=== PATIENT | male | born 1935 | race Caucasian/White ===

== ENCOUNTER 2023-01-02 10:24 | Emergency (ER) | payer MEDICARE, OTHER ==
[2023-01-02 11:09] LABS: APPEARANCE,URINE SLIGHTLY CLOUDY (CLEAR); BILIRUBIN,URINE NEGATIVE (NEGATIVE); COLOR,URINE YELLOW (YELLOW); GLUCOSE,URINE NEGATIVE (NEGATIVE); KETONES,URINE 15 mg/dL (NEGATIVE); LEUKOCYTE ESTERASE,URINE NEGATIVE (NEGATIVE); NITRITE,URINE NEGATIVE (NEGATIVE); OCCULT BLOOD,URINE SMALL (NEGATIVE); PH,URINE 5.5 (5.0-8.0); PROTEIN,URINE 100 mg/dL (NEGATIVE); UROBILINOGEN,URINE 0.2 EU/dL (0.2-1.0)
[2023-01-02 11:14] LABS: AMORPHOUS SEDIMENT,URINE NOT SEEN; BACTERIA,URINE NOT SEEN; EPITHELIAL CELLS,URINE NOT SEEN; MUCUS,URINE MANY; WBC,URINE 0-5 (0-5)
[2023-01-02] MEDS ORDERED: Sodium Chloride 0.9% 10 ML Syringe FLUSH PRN (11:15)
[2023-01-02 11:24] LABS: BASOPHILS ABSOLUTE AUTO 0.03 K/uL (0.00-0.10); BASOPHILS PERCENT AUTO 0.7 % (0.1-1.3); HEMATOCRIT 46.2 % (38.4-49.7); HEMOGLOBIN 16.2 g/dL (12.9-16.9); IMMATURE GRAN PERCENT AUTO 0.2 % (0.0-0.7); LYMPHOCYTES ABSOLUTE AUTO 0.26 K/uL (0.8-3.3); LYMPHOCYTES PERCENT AUTO 5.8 % (11.4-47.7); MEAN CORPUSCULAR HEMOGLOBIN 34.8 pg (31.6-35.5); MEAN CORPUSCULAR HGB CONC 35.1 g/dL (31.6-35.5); MEAN CORPUSCULAR VOLUME 99.1 fL (81.4-99.0); MONOCYTES ABSOLUTE AUTO 0.18 K/uL (0.20-0.90); NEUTROPHILS ABSOLUTE AUTO 3.99 K/uL (1.0-7.6); NEUTROPHILS PERCENT AUTO 89.3 % (40.0-78.1); PLATELET COUNT,PLT 113 K/uL (130-375); RED BLOOD CELL COUNT 4.66 M/uL (4.14-5.76); WHITE BLOOD CELL COUNT,WBC 4.5 K/uL (3.2-11.0)
[2023-01-02 11:26] LABS: IMMATURE GRAN ABSOLUTE AUTO 0.01 K/uL (0.00-0.23)
[2023-01-02] MEDS ORDERED: Sodium Chloride 0.9% 1,000 ML IV ONE (11:30)
[2023-01-02 11:40] LABS: CALCIUM 8.5 mg/dL (8.5-10.1); EST CRCL DRUG DOSING (CG) 58.43 mL/min; POTASSIUM,K 3.8 mmol/L (3.6-5.2)
[2023-01-02 11:42] LABS: ANION GAP 11.8 mmol/L (5.0-14.0)
[2023-01-02 13:10] LABS: LYME AB IgG Negative (Negative); LYME AB IgM Negative (Negative)
== END 2023-01-02 15:35 | disposition home or self-care (01) ==
LOC: EDBD → JP.ED 10:24
DX: R53.1 Weakness (principal); Z20.822 Contact with and (suspected) exposure to COVID-19
CPT/HCPCS: 36415; 71046; 71250; 80048; 81001; 83605; 85025; 86618; 87040; 87086; 96360; 96361; 99285; J3490; J7030; U0002

== ENCOUNTER 2023-01-03 12:14 | Emergency (ER) | payer MEDICARE, OTHER ==
[2023-01-03] MEDS ORDERED: Sodium Chloride 0.9% 10 ML Syringe FLUSH PRN (13:48)
[2023-01-03] MEDS ORDERED: Doxycycline 100 MG in Sodium Chloride 0.9% 100 ML IV ONE ×2 (13:48→15:00)
[2023-01-03 13:59] LABS: BASE EXCESS ARTERIAL -0.1 mm/L; BICARBONATE,ARTERIAL 21.5 mmol/L (22.0-26.0); METHEMOGLOBIN 0.7 %; O2 SATURATION ARTERIAL 94.1 % (95.0-98.0); OXYHEMOGLOBIN 91.6 %; PO2 ARTERIAL 64.8 mmHg (75.0-100.0); TOTAL HEMOGLOBIN 15.1 g/dL (13.5-18.0)
[2023-01-03 14:05] LABS: HEMATOCRIT 40.5 % (38.4-49.7); HEMOGLOBIN 14.5 g/dL (12.9-16.9); MEAN CORPUSCULAR HEMOGLOBIN 34.9 pg (31.6-35.5); MEAN CORPUSCULAR HGB CONC 35.8 g/dL (31.6-35.5); MEAN CORPUSCULAR VOLUME 97.4 fL (81.4-99.0); PLATELET COUNT,PLT 64 K/uL (130-375); RED BLOOD CELL COUNT 4.16 M/uL (4.14-5.76)
[2023-01-03 14:25] LABS: BAND ABSOLUTE MAN 0.12 K/uL; BAND PERCENT MAN 2 % (5-11); LYMPHOCYTES ABSOLUTE MAN 0.12 K/uL (0.8-3.3); LYMPHOCYTES PERCENT MAN 2 % (24-44); MONOCYTES ABSOLUTE MAN 0.12 K/uL (0.20-0.90); MONOCYTES PERCENT MAN 2 % (2-6); NEUTROPHILS ABSOLUTE MAN 5.64 K/uL (1.0-7.6); SEG NEUTROPHILS PERCENT MAN 94 % (36-66)
[2023-01-03 14:33] LABS: A/G RATIO 0.8 (1.2-2.2); ALANINE AMINOTRANSFERASE,ALT 75 U/L (12-78); ALBUMIN 2.7 g/dL (3.4-5.0); ALKALINE PHOSPHATASE 64 U/L (46-116); ASPARTATE AMNIOTRANSFERASE,AST 93 U/L (15-37); BILIRUBIN TOTAL 0.8 mg/dL (0.2-1.0); BLOOD UREA NITROGEN,BUN 19 mg/dL (7-18); CALCIUM 7.7 mg/dL (8.5-10.1); CARBON DIOXIDE,CO2 23 mmol/L (21-32); CHLORIDE,CL 101 mmol/L (100-108); CREATININE 0.9 mg/dL (0.8-1.3); EST CRCL DRUG DOSING (CG) 61.59 mL/min; ESTIMATED GFR 83 mL/min (>60); GLUCOSE RANDOM 132 mg/dL (74-106); POTASSIUM,K 3.6 mmol/L (3.6-5.2); SODIUM,NA 133 mmol/L (140-148); TSH ULTRASENSITIVE 0.651 uIU/mL (0.358-3.740)
[2023-01-03 14:36] LABS: ANION GAP 12.6 mmol/L (5.0-14.0)
[2023-01-03 14:41] LABS: INR 1.3; PTT,PARTIAL THROMBOPLSTIN TIME 30.2 sec (21.8-27.3)
[2023-01-03] MEDS ORDERED: cefTRIAXone 2 GM in Sodium Chloride 0.9% 50 ML IV ONE (15:09)
[2023-01-03] MEDS ORDERED: methylPREDNISolone Sodium Succinate 125 MG/2 ML SDV IVPUSH ONE (15:48)
[2023-01-03 17:11] LABS: BICARBONATE,ARTERIAL 23.1 mmol/L (22.0-26.0); CARBOXYHEMOGLOBIN 1.6 % (0.0-1.6); METHEMOGLOBIN 0.2 %; O2 SATURATION ARTERIAL 92.5 % (95.0-98.0); OXYHEMOGLOBIN 90.8 %; PCO2 ARTERIAL 31.3 mmHg (35.0-42.0)
[2023-01-03 17:14] LABS: BASE EXCESS ARTERIAL 0.9 mm/L; PO2 ARTERIAL 56.6 mmHg (75.0-100.0)
[2023-01-03 17:15] LABS: TOTAL HEMOGLOBIN 15.1 g/dL (13.5-18.0)
[2023-01-03] MEDS ORDERED: Etomidate 2 MG/ML 10 ML SDV IVPUSH ONE (17:50)
[2023-01-03] MEDS ORDERED: Succinylcholine 200 MG/10 ML MDV IV ONE (17:51)
[2023-01-03] MEDS ORDERED: Sodium Chloride 0.9% 1,000 ML IV SCH (18:00)
[2023-01-03] MEDS ORDERED: propofoL 100 ML IV SCH (18:00)
[2023-01-03 18:53] LABS: BICARBONATE,ARTERIAL 23.2 mmol/L (22.0-26.0); CARBOXYHEMOGLOBIN 1.4 % (0.0-1.6); METHEMOGLOBIN 0.6 %; PCO2 ARTERIAL 31.5 mmHg (35.0-42.0)
[2023-01-03 18:55] LABS: PO2 ARTERIAL 90.8 mmHg (75.0-100.0); TOTAL HEMOGLOBIN 15.3 g/dL (13.5-18.0)
== END 2023-01-03 19:55 ==
LOC: JP.ED 12:14 → EDBD 12:14 → JP.ED 19:55
DX: R41.81 Age-related cognitive decline (principal); R53.1 Weakness; D69.6 Thrombocytopenia, unspecified; J96.01 Acute respiratory failure with hypoxia; D68.9 Coagulation defect, unspecified; R41.82 Altered mental status, unspecified; W57.XXXD Bitten or stung by nonvenomous insect and other nonvenomous arthropods, subsequent encounter
CPT/HCPCS: 36415; 36600; 70450; 70551; 71045; 80053; 82140; 82803; 83605; 84145; 84443; 84484; 85025; 85379; 85610; 85730; 86666; 86753; 86788; 86789; 87040; 93005; 96361; 96365; 96375; 99285; J0696; J2930; J3490; J7030